=== PATIENT | female | born 1970 | race Caucasian/White ===

== ENCOUNTER 2021-12-15 15:25 | Emergency (ER) | payer BC ==
[~2021-12-15] VITALS: Ht 172.7 cm; Wt 104.3 kg
[2021-12-15 15:25] VITALS: BP_SYST 109
--- NOTE | 2021-12-15 15:25 | NUR ---
BROUGHT BACK TO HALLWAY BED AND TRIAGED. REPORT GIVEN TO JANES.
--- NOTE | 2021-12-15 15:29 | NUR ---
Dr. Garcia at bedside
[2021-12-15] MEDS ORDERED: NACL 0.9% 1,000 ML IV ONE (15:45)
[2021-12-15] MEDS ORDERED: ONDANSETRON HCL 4 MG/2 ML VIAL IVP ONE (15:45)
[2021-12-15 16:31] LABS: BILIRUBIN,URINE NEGATIVE (NEGATIVE); CLARITY/URINE CLEAR (CLEAR); COLOR,URINE YELLOW (YELLOW); GLUCOSE,URINE NEGATIVE (NEGATIVE); KETONES,URINE NEGATIVE (NEGATIVE); LEUKOCYTE ESTERASE ,URINE TRACE (NEGATIVE); NITRITE, URINE NEGATIVE (NEGATIVE); PROTEIN URINE NEGATIVE (NEGATIVE); UROBILINOGEN,URINE 0.2 (0.2-1.0)
[2021-12-15 16:37] LABS: BLOOD, URINE TRACE (NEGATIVE)
[2021-12-15 16:40] LABS: BACTERIA,URINE FEW /HPF (None Seen); MUCUS,URINE 1+ /LPF (None Seen)
--- NOTE | 2021-12-15 16:40 | NUR ---
Pt to bed 7.
--- NOTE | 2021-12-15 16:40 | NUR ---
Patient amna chavira from home with c/o of pain and numbness in the whole left arm down to the fingers. Pt states that this started 4 days ago and the pain is dull and rates it at 1/10. Pt has no medical history and takes no home medications. Pt had 20 years ago. Pt connect to the monitor and safety precatuions are in place.
[2021-12-15 17:01] LABS: ANION GAP 9 (5-15); CALCIUM 10.5 mg/dL (8.4-11.0); CHLORIDE 102 mmol/L (98-107); CREATININE 0.72 mg/dL (0.55-1.30); GFR AFRICAN AMERICAN 109 mL/min (>90); GLUCOSE 93 mg/dL (70-99); POTASSIUM 3.7 mmol/L (3.5-5.1); SODIUM SERUM 136 mmol/L (136-145); UREA NITROGEN, BLOOD 10 mg/dL (8-21)
[2021-12-15 17:03] LABS: BASOPHILS # (AUTO) 0.1 K/uL (0.0-0.2); BASOPHILS % (AUTO) 0.7 % (0.0-2.0); EOSINOPHILS # (AUTO) 0.1 K/uL (0.0-0.4); EOSINOPHILS % (AUTO) 0.8 % (0.0-4.0); HEMATOCRIT 45.5 % (36-48); HEMOGLOBIN 15.4 g/dL (12.0-16.0); LYMPHOCYTES # (AUTO) 2.8 K/uL (1.0-5.5); LYMPHOCYTES % (AUTO) 29.7 % (20.5-51.5); MEAN CORPUSCULAR HEMOGLOBIN 29 pg (27-31); MEAN CORPUSCULAR HGB CONC 34 % (32-36); MEAN CORPUSCULAR VOLUME 87 fL (79.0-98.0); MONOCYTES # (AUTO) 0.4 K/uL (0.0-1.0); MONOCYTES % (AUTO) 4.2 % (1.7-9.3); NEUTROPHILS # (AUTO) 6.1 K/uL (1.8-7.7); NEUTROPHILS % (AUTO) 64.6 % (40.0-70.0); PLATELET COUNT (AUTO) 341 K/uL (130-430); RED BLOOD CELL COUNT(AUTO) 5.24 MIL/uL (4.2-6.2); RED CELL DISTRIBUTION WIDTH 12.9 % (9.0-15.0); WHITE BLOOD COUNT (AUTO) 9.5 K/uL (4.8-10.8)
[2021-12-15 17:11] LABS: ALANINE AMINOTRANSFERASE 22 U/L (12-78); ALBUMIN 3.7 g/dL (3.4-4.8); ASPARTATE AMINOTRANSFERASE 20 U/L (10-37); FREE T4 (FREE THYROXINE) 1.2 ng/dl (0.8-1.5); THYROID STIMULATING HORMONE 1.13 uIu/mL (0.36-3.74); TOTAL BILIRUBIN 0.2 mg/dL (0.0-1.0)
[2021-12-15] MEDS ORDERED: ONDA-8 TL (18:32)
[2021-12-15 19:00] VITALS: BP_SYST 119
--- NOTE | 2021-12-15 19:01 | NUR ---
Patient given written and verbal discharge instructions and verbalizes understanding. ER Dr. Garcia discussed with patient the results and treatment provided. Patient in stable condition. ID arm band removed. IV catheter removed intact and dressing applied, no active bleeding. Rx of Zofran given. Patient educated on pain management and to follow up with PMD. Pain Scale 0. Opportunity for questions provided and answered. Medication side effect fact sheet provided.
== END 2021-12-15 19:00 | disposition home or self-care (01) ==
LOC: SED 15:25
DX: R42 Dizziness and giddiness (principal); R00.2 Palpitations; R11.0 Nausea; I10 Essential (primary) hypertension; Z20.822 Contact with and (suspected) exposure to COVID-19
CPT/HCPCS: 36415; 80053; 81000; 81025; 83605; 83880; 84439; 84443; 84484; 85025; 87040; 87426; 96361; 96374; 99283; J2405; J7030